=== PATIENT | female | born 1980 | race Hispanic/Latino ===

== ENCOUNTER 2018-08-15 16:17 | Inpatient (IN) | payer MEDICAID ==
--- NOTE | 2018-08-15 16:27 | C.PDOC ---
History Of Present Illness 38 yr old female w/ hx of bipolar, htn, depression, etoh, heroin IVDU p/w SI and difficulty sleeping. Pt notes that [facility] and was worried that they were poisoning her. She notes that she has not been taking her bipolar medication over the past 5 days and that is when the thoughts of her rehab site poisoning her began. She notes difficultly sleeping. She denies any abdominal pain, chest pain, back pain, shortness of breath, fever, chills or night sweats. No headache. No fall or trauma. She denies any recent usage of heroin. Time Seen by Provider: 08/15/18 16:27 Chief Complaint (Nursing): Psychiatric Evaluation Past Medical History Family History: States: Unknown Family Hx Review Of Systems Constitutional: Negative for: Fever, Chills, Sweats, Weakness, Malaise Eyes: Negative for: Pain, Vision Change, Conjunctivae Inflammation, Eyelid Inflammation ENT: Negative for: Ear Pain, Ear Discharge, Nose Pain, Nose Discharge, Nose Congestion, Mouth Pain, Mouth Swelling, Throat Pain Cardiovascular: Negative for: Chest Pain, Palpitations, Orthopnea, Edema Respiratory: Negative for: Cough, Shortness of Breath, Hemoptysis, SOB with Excertion, Pleuritic Pain, Sputum Gastrointestinal: Negative for: Nausea, Vomiting, Abdominal Pain, Diarrhea, Constipation, Melena, Hematochezia Genitourinary: Negative for: Dysuria, Frequency, Incontinence, Hematuria Musculoskeletal: Negative for: Neck Pain, Shoulder Pain Skin: Negative for: Rash, Lesions Neurological: Negative for: Weakness, Numbness, Incoordination, Change in Speech, Confusion, Seizures, Altered Mental Status, Headache Psych: Positive for: Suicidal ideation Physical Exam - Physical Exam Appears: Well, Non-toxic, No Acute Distress Skin: Normal Color, Warm Head: Atraumatic, Normacephalic Eye(s): bilateral: Normal Inspection, PERRL, EOMI Nose: Normal, No Flaring, No Discharge Tongue: Normal Appearing, No Swelling, No Lesions Lips: Normal Appearing, No Swelling, No Contusion Teeth: Normal Dentition, No Caries Gingiva: Normal Appearing Throat: Normal, No Erythema, No Exudate Neck: Normal, Normal ROM, Trachea Midline, Supple, Other (no meningeal signs) Lymphatic: Normal Exam Chest: Symmetrical, No Deformity Cardiovascular: Rhythm Regular, No Edema, No Friction Rub, No Murmur, No JVD Respiratory: Normal Breath Sounds, No Decreased Breath Sounds, No Accessory Muscle Use, No Rales, No Rhonchi, No Stridor, No Wheezing, No Plerual Rub Gastrointestinal/Abdominal: Normal Exam, Soft, No Tenderness, No Organomegaly, No Mass, No Distention, No Guarding Back: Normal Inspection, No CVA Tenderness, No Vertebral Tenderness Extremity: Normal ROM, No Tenderness, No Pedal Edema, No Calf Tenderness, No Swelling, Other (L AC fossa well healing, non crepitus non erythematous injection site noted ) Extremity: Bilateral: Atraumatic Pulses: Left Radial: Normal, Right Radial: Normal Neurological/Psych: Oriented x3, Normal Speech, Normal Cognition, Normal Cranial Nerves, No Cerebellar Signs, Normal Motor Gait: Steady Extremity: Right: No Drift, Left: No Drift ED Course And Treatment - Laboratory Results Result Diagrams: 08/15/18 17:15 08/15/18 17:15 Medical Decision Making Medical Decision Makin yr old f w/ hx of bipolar, etoh, heroin abuse p/w SI. No signs of abd tenderness on exam. No signs of poisoning on exam. Likely psych related issue given pt being d/c from her meds followed by difficulty sleeping and thoughts of SI and paranoid thoughts. NO other complaints. 1756 labs unremarkable pt remains w/ out physical complaints medically clear 1844 Appreciate consult w/ Crisis: pt to be admitted to Dr. Montoya service for MDD. Pt in NAD, agreeable to plan. Disposition - Disposition Disposition Time: 17:56 Condition: STABLE Forms: [employer] ([place]) - Clinical Impression Clinical Impression: MDD (major depressive disorder)
[2018-08-15 16:29] VITALS: BMI 23.3
[2018-08-15 17:26] LABS: BASO # 0.1 K/uL (0.0-0.2); BASO % 0.9 % (0.0-2.0); EOS # 0.1 K/uL (0.0-0.7); EOS % 0.7 % (0.0-4.0); HEMOGLOBIN 15.9 g/dL (11.0-16.0); LYMPH % 36.6 % (20.0-40.0); MEAN CELL VOLUME 94.7 fL (81.0-99.0); MEAN CORPUSCULAR HEMOGLOBIN 31.2 pg (27.0-31.0); MEAN CORPUSCULAR HGB CONC 32.9 g/dL (33.0-37.0); MEAN PLATELET VOLUME 7.8 fL (7.2-11.7); MONO # 0.5 K/uL (0.0-0.8); NEUT # 4.6 K/uL (1.8-7.0); NEUT % 55.8 % (50.0-75.0); NRBC % 0.1 % (0.0-2.0); RBC 5.11 Mil/uL (3.80-5.20); RED CELL DISTRIBUTION WIDTH 14.3 % (11.5-14.5); WHITE BLOOD COUNT 8.3 K/uL (4.8-10.8)
[2018-08-15 17:38] LABS: ACETAMINOPHEN < 10.0 ug/mL (10.0-30.0); SALICYLATE < 1.0 mg/dL 1; SQUAMOUS EPITHIAL 1 /hpf (0-5); URINE AMORPHOUS SEDIMENT RARE /ul (<OCC); URINE BILIRUBIN NEGATIVE (NEGATIVE); URINE BLOOD 1+ (NEGATIVE); URINE CLARITY Hazy (Clear); URINE COLOR Yellow (YELLOW); URINE GLUCOSE (UA) NORMAL (Normal); URINE LEUKOCYTE ESTERASE NEG Leu/uL (Negative); URINE PROTEIN NEGATIVE (NEGATIVE); URINE UROBILINOGEN NORMAL mg/dL (0.2-1.0)
[2018-08-15 17:44] LABS: ALB/GLOB RATIO 1.7 (1.0-2.1); ALBUMIN 4.5 g/dL (3.5-5.0); ALT/SGPT 27 U/L (9-52); AST/SGOT 24 U/L (14-36); BLOOD UREA NITROGEN 9 mg/dL (7-17); CALCIUM 9.5 mg/dl (8.6-10.4); GFR NON-AFRICAN AMERICAN > 60
[2018-08-15 17:50] LABS: BARBITURATES, UR NEGATIVE (NEGATIVE); OPIATES, UR NEGATIVE (NEGATIVE); PHENCYCLIDINE, UR NEGATIVE (NEGATIVE)
[2018-08-15 17:51] LABS: BENZODIAZEPINES, UR POSITIVE (NEGATIVE)
[2018-08-15] MEDS ORDERED: Potassium Chloride 20 mEq/15 ml LIQ UD PO STA (19:10)
[2018-08-15] MEDS ORDERED: Potassium Chloride 20 mEq/15 ml LIQ UD ONE (19:14)
--- NOTE | 2018-08-16 09:18 | PCM.BM ---
<Rich Green - Last Filed: 08/16/18 09:15> Treatment Plan Problems - Problems identified on initial assessmt Altered sleep patterns Date Initiated: 08/15/18 Time Initiated: 21:35 Assessment reference: NA Medication nonadherence Date Initiated: 08/15/18 Time Initiated: 21:35 Assessment reference: NA Treatment assets and liabiliti Patient Assests: self-reliant, ADL independent, negotiates basic needs, cognitively intact Patient Liabilities: live alone ([facility]), financial problems (Unemployed), relationship conflicts (Lost custody of children), substance abuse (Heroin and alcohol), medical problems (Hypertension and Hep C), legal issue (Dyfs has custody of children) - Milieu Protocol Maintain good personal hygiene: daily Encourage regular showers, daily Remind patient to perform daily oral care, every shift Assist patient to perform ADL's Conduct patient checks and document Observation sheet: Q15 minutes Maintain personal safety: every shift Educate patient to report safety concerns to staff, every shift Monitor environment for contraband/sharps Medication safety: Monitor for expected outcome, potential side effects: every shift, Assess barriers to learning: every shift, Assess readiness for medication education: every shift <Lindsay Petersen - Last Filed: 08/17/18 13:52> Family Contact Family involvement: Patient does not wish Family/SO involvement Family contact: Patient declines to allow family contact at present - Goals for Treatment Patient goals for treatment: "I want to go to an outpatient program." Discharge/Continuing Care - Education Needs Education Needs: Patient Medication, Patient Diagnosis/Disease Process, Patient Coping Skills, Patient Placement options, Patient Community resources - Discharge Discharge Criteria: Free of Suicidal thoughts, Normal sleep pattern, Ability to care for self, Reduction of target symptoms Discharge to:: Home, With Family <Kajal Solitario - Last Filed: 08/22/18 13:08> - Diagnosis (1) Bipolar depression Status: Acute Interventions: 08/22/18 13:08 * Assess/adjust medications daily and /or as needed * See patient on an individual basis 7x/week to assess level of manic behaviors and stability * Discuss risks, benefits, side effects and alternatives of medications *
--- NOTE | 2018-08-16 09:48 | PCM.PSYCH ---
Initial Psychiatric Evaluation - Initial Psychiatric Evaluation Type of Admission: Voluntary Legal Status: Capacity Chief Complaint (in patient's own words): I was feeling increasingly depressed and suicidal.' History of Present Illness and Precipitating Events: Patient is a 38 year old female, single, currently unemployed, escorted to the ED by [facility] for depressed mood, suicidal ideations and delusional thinking. Patient denies any past history of any inpatient psychiatric hospitalizations. She denies any history of follow-up with any psychiatrist. Patient reports that she has history of heroin abuse and drinking. She reports of abusing 10-15 bags of heroin and 2-3 pints of vodka daily. She reports that her last abuse was last month, July 2018. Then she went to detox and then went to [facility] for rehab. She reports that since past week she has become increasingly depressed. [place]. Patient reported she was on Ambilify and Wellbutrin but she stopped taking the medication 5 days ago because "it was making me feel wierd." Patient reported that she is "feeling insane" and that she has not slept for 5 nights because she has nightmares of her dying, getting seizures and evil kittens. Patient reported that she was feeling suicidal within [facility] and she had a plan to hang herself but she went to talk to the counsler instead and they sent her here. She reports depressed mood, feelings of hopelessness, helplessness and worthlessness. She also reports at times racing thoughts, flight of ideas, irritability and agitation. She reports paranoia but denies any auditory or visual hallucinations. Family history: Patient's brother overdose on heroin to commit suicide, on December 2017. Past medical history: HTN Current Medications: Active Medications Generic Name Dose Route Start Last Admin Trade Name Freq PRN Reason Stop Dose Admin Aripiprazole 10 mg 08/15/18 22:00 08/15/18 21:37 Abilify PO 10 mg HS JODY Administration Bupropion HCl 150 mg 08/16/18 10:00 08/16/18 09:40 Wellbutrin Xl PO 150 mg DAILY JODY Administration Hydroxyzine HCl 25 mg 08/15/18 20:48 08/15/18 23:36 Atarax PO 25 mg Q6 PRN Administration Anxiety Ibuprofen 600 mg 08/16/18 07:57 08/16/18 07:58 Motrin Tab PO 600 mg Q6 PRN Administration Pain, moderate (4-7) Pneumococcal Polyvalent Vaccine 0.5 ml 08/17/18 10:00 Pneumovax 23 Vaccine IM 08/17/18 10:01 .ONCE ONE Trazodone HCl 50 mg 08/15/18 22:00 08/15/18 21:37 Desyrel PO 50 mg HS JODY Administration Past Psychiatric History - Past Psychiatric History Previous Treatment History: None Pertinent Medical Hx (Current Medical&Sleep Prob, Allergies): Allergies Allergy/AdvReac Type Severity Reaction Status Date / Time No Known Allergies Allergy Verified 08/15/18 16:28 No Known Home Med 08/15/18 Review of Systems - Review of Systems All systems: reviewed and no additional remarkable complaints except - Psychiatric Psychiatric: Anxiety, Irritability, Mood Swings, Paranoia, Suicidal Ideation Mental Status Examination - Personal Presentation Personal Presentation: Looks stated age - Affect Affect: Broad - Motor Activity Motor Activity: Calm - Reliability in Providing Information Reliability in Providing Information: Fair - Speech Speech: Organized - Mood Mood: Depressed, Anxious - Formal Thought Process Formal Thought Process: Delusions - Obsessions/Compulsions Obsessions: No Compulsions: No - Cognitive Functions Orientation: Person, Place, Situation, Time Sensorium: Alert Attention/Concentration: Attentive Abstract Thinking: [place] Estimate of Intelligence: Below average Judgement: Imparied, as evidence by: Poor judgement, Imparied, as evidence by: Lack of insight into illness - Risk Risk: Suicidal, Diminished functioning - Limitations Limitations: Living alone DSM 5 DX - DSM 5 DSM 5 Diagnosis: Bipolar disorder mixed severe with psychotic features Alcohol use disorder severe in remission Opioid use disorder severe in early remission - Recommended/Plan of Treatment Treatment Recommendations and Plan of Treatment: Bipolar disorder mixed severe with psychotic features Alcohol use disorder severe in remission Opioid use disorder severe in early remission -CBT -Psychoeducation -Supportive therapy and group therapy -Trazodone for insomnia -Hydroxyzine for anxiety -Ativan for severe anxiety -Abilify for mood -DC Wellbutrin for depression -Neurontin for augmentation - Smoking Cessation Smoking Cessation Initiated: No
[2018-08-16] MEDS ORDERED: buPROPion 150 mg/24 Hours XL Tab PO SCH (10:00)
--- NOTE | 2018-08-17 09:27 | PCM.PYCHPN ---
Psychiatric Progress Note - Psychiatric Progress Note Patient seen today, length of contact: 15 min Patient Chief Complaint: I was feeling increasingly depressed and suicidal.' Problems Identified/Issues Discussed: Patient was seen and evaluated, chart reviewed and discussed the staff. Patient still reports depressed mood and reports at times feelings of hopelessness and helplessness. She remained isolated withdrawn and confined to room. As per staff she remained calm and cooperative and redirectable. She reports racing thoughts, flight of ideas and irritability. She denies any auditory or visual hallucinations. She is taking medication but denies any side effects. Supportive therapy was given Medication Change: Yes Medical Record Reviewed: Yes Mental Status Examination - Cognitive Function Orientation: Person, Place, Situation, Time Memory: Intact Attention: WNL Concentration: Poor Association: WNL Fund of Knowledge: Poor - Mood Mood: Depressed, Anxious - Affect Affect: Broad - Speech Speech: Soft - Formal Thought Process Formal Thought Process: Delusions - Suicidal Ideation Suicidal Ideation: No - Homicidal Ideation Homicidal Ideation: No Goal/Treatment Plan - Goal/Treatment Plan Need for Continued Stay: Remain at risks for inpatient hospitalization Progress Toward Problem(s) and Goals/Treatment Plan: Bipolar disorder mixed severe with psychotic features Alcohol use disorder severe in remission Opioid use disorder severe in early remission -CBT -Psychoeducation -Supportive therapy and group therapy -Trazodone for insomnia -Hydroxyzine for anxiety -Ativan for severe anxiety -Abilify for mood -DC Wellbutrin for depression -Neurontin for augmentation
[2018-08-17] MEDS ORDERED: Pneumococcal 23-Valent Vaccine IM ONE (10:00)
[2018-08-18] MEDS ORDERED: Aluminum Hydroxide/Magnesium Hydroxide Susp (30 mL) PO PRN (14:04)
[2018-08-19] MEDS: Pantoprazole 40 mg EC Tab PO SCH (09:42)
--- NOTE | 2018-08-19 13:04 | CP.PCM.CON ---
<Radha Gaona - Last Filed: 08/19/18 14:30> History of Present Illness - History of Present Illness History of Present Illness: Medicine Consult Note for Hospitalist Service CC: shortness of breath This is a 38 year old female with PMHx of Major Depressive Disorder, Hx of alcohol (07/24), hx of IV heroine use (last use 07/2018), and Hepatitis C (untreated), who were were asked to see for shortness of breath x 3 days. Patient reports she started to experience subjective fevers, chills, generalized weakness, fatigue, and nonproductive cough since day of admission to the psych unit. She states she has no appetite, not able to tolerate much liquids. Denied any nausea or vomiting, but had 1 episode of diarrhea yesterday. PMHx: As noted above PSHx: Denied Meds: Denied All: Denied SHx: Admitted to prior tobacco use 8 cigarettes / day for ~ 10 years, admitted to alcohol use, and IV heroine use FHx: Unremarkable Past Patient History - Past Social History Smoking Status: Heavy Smoker > 10 Cigarettes Daily - CARDIAC Hx Cardiac Disorders: No (Patient denied.) Hx Hypertension: Yes - PULMONARY Hx Tuberculosis: No (Patient denied.) - NEUROLOGICAL HX Cerebrovascular Accident: No (Patient denied.) Hx Seizures: No (Patient denied.) - HEMATOLOGICAL/ONCOLOGICAL Hx Cancer: No (Patient denied.) Hx Human Immunodeficiency Virus (HIV): No (Patient denied.) - GENITOURINARY/GYNECOLOGICAL Hx Sexually Transmitted Disorders: No (Patient denied.) - PSYCHIATRIC Hx Substance Use: Yes - SURGICAL HISTORY Hx Cardiac Catheterization: Yes (x2) - ANESTHESIA Hx Anesthesia: Yes Meds Allergies/Adverse Reactions: Allergies Allergy/AdvReac Type Severity Reaction Status Date / Time No Known Allergies Allergy Verified 08/15/18 16:28 - Medications Medications: Current Medications Acetaminophen (Tylenol 325mg Tab) 650 mg PO Q6 PRN PRN Reason: Pain, moderate (4-7) Last Admin: 08/17/18 07:26 Dose: 650 mg Al Hydrox/Mg Hydrox/Simethicone (Maalox 30 Ml) 30 ml PO Q6 PRN PRN Reason: Indigestion / Heartburn Last Admin: 08/18/18 21:09 Dose: 30 ml Aripiprazole (Abilify) 10 mg PO HS JODY Last Admin: 08/18/18 21:02 Dose: 10 mg Gabapentin (Neurontin) 300 mg PO TID [facility] Last Admin: 08/19/18 09:10 Dose: 300 mg Hydroxyzine HCl (Atarax) 25 mg PO Q6 PRN PRN Reason: Anxiety Last Admin: 08/15/18 23:36 Dose: 25 mg Ibuprofen (Motrin Tab) 600 mg PO Q6 PRN PRN Reason: Pain, moderate (4-7) Last Admin: 08/17/18 04:34 Dose: 600 mg Mirtazapine (Remeron) 15 mg PO [facility] Last Admin: 08/18/18 21:02 Dose: 15 mg Nicotine (Nicoderm Cq) 1 patch TD DAILY [facility] Last Admin: 08/19/18 09:10 Dose: 1 patch Ondansetron HCl (Zofran Tab) 4 mg PO Q6 PRN PRN Reason: Nausea/Vomiting Last Admin: 08/17/18 11:21 Dose: 4 mg Pantoprazole Sodium (Protonix Ec Tab) 40 mg PO DAILY [facility] Last Admin: 08/19/18 09:42 Dose: 40 mg Trazodone HCl (Desyrel) 100 mg PO [facility] Last Admin: 08/18/18 21:02 Dose: 100 mg Physical Exam - Constitutional Appears: No Acute Distress - Head Exam Head Exam: ATRAUMATIC, NORMAL INSPECTION, NORMOCEPHALIC - Eye Exam Eye Exam: EOMI, Normal appearance, PERRL Pupil Exam: NORMAL ACCOMODATION - ENT Exam ENT Exam: Mucous Membranes Dry - Neck Exam Neck exam: Positive for: Normal Inspection - Respiratory Exam Respiratory Exam: Clear to Auscultation Bilateral, NORMAL BREATHING PATTERN. absent: Decreased Breath Sounds, Rales, Rhonchi, Wheezes - Cardiovascular Exam Cardiovascular Exam: Tachycardia, +S1, +S2. absent: Diastolic murmur, Systolic Murmur - GI/Abdominal Exam GI & Abdominal Exam: Normal Bowel Sounds, Soft. absent: Distended, Tenderness - Rectal Exam Rectal Exam: Deferred - Extremities Exam Extremities exam: Positive for: normal inspection, pedal pulses present. Negative for: pedal edema, tenderness - Back Exam Back exam: NORMAL INSPECTION - Neurological Exam Neurological exam: Alert, CN II-XII Intact, Oriented x3 - Psychiatric Exam Psychiatric exam: Normal Affect, Normal Mood - Skin Skin Exam: Dry, Intact, Normal Color, Warm Results - Vital Signs Recent Vital Signs: Last Vital Signs Temp 99.6 F 08/19/18 06:00 Pulse 93 H 08/19/18 06:00 Resp 18 08/19/18 06:00 BP 143/85 08/19/18 06:00 Pulse Ox 100 08/15/18 18:40 - Labs Result Diagrams: 08/15/18 17:15 08/15/18 17:15 Assessment & Plan - Assessment and Plan (Free Text) Plan: URI/ Possible PNA Imaging: - CXR: ordered pending Management: - IVF, Avelox started, Florastor - Mucinex, Tesselon, Vitamin C, Tamiflu - Pneumonia work up, procal, Influenza - UA, Blood and Urine cultures ordered Tachycardia - EKG ordered - D- Dimer ordered Hx of Alcohol Dependence Hx of Tobacco Use Dependence - Nicotine Patch in place Major Depressive Disorder - Managed by Psych Prophylactic Measures - GI PPX: Protonix - DVT PPX: SCDs Disposition: Patient transferred to tele for IV hydration, IV Abx. Once medically stable will transfer back to psych. DW Dr. Paige, Radha Gaona DO, PGY2 <Ursula Paige V - Last Filed: 08/19/18 23:35> Meds - Medications Medications: Current Medications Acetaminophen (Tylenol 325mg Tab) 650 mg PO Q6 PRN PRN Reason: Pain, moderate (4-7) Last Admin: 08/17/18 07:26 Dose: 650 mg Al Hydrox/Mg Hydrox/Simethicone (Maalox 30 Ml) 30 ml PO Q6 PRN PRN Reason: Indigestion / Heartburn Last Admin: 08/18/18 21:09 Dose: 30 ml Albuterol/Ipratropium (Duoneb 3 Mg/0.5 Mg (3 Ml) Ud) 3 ml INH RQ6 PRN PRN Reason: Shortness of Breath Aripiprazole (Abilify) 10 mg PO HS JODY Last Admin: 08/19/18 21:48 Dose: 10 mg Ascorbic Acid (Vitamin C 500 Mg Tab) 500 mg PO DAILY JODY Benzonatate (Tessalon Perles) 100 mg PO BID [facility] Last Admin: 08/19/18 17:32 Dose: 100 mg Gabapentin (Neurontin) 300 mg PO TID [facility] Last Admin: 08/19/18 17:32 Dose: 300 mg Guaifenesin (Mucinex La) 600 mg PO BID [facility] Last Admin: 08/19/18 17:31 Dose: 600 mg Hydroxyzine HCl (Atarax) 25 mg PO Q6 PRN PRN Reason: Anxiety Last Admin: 08/15/18 23:36 Dose: 25 mg Sodium Chloride (Sodium Chloride 0.9%) 1,000 mls @ 100 mls/hr IV .Q10H [facility] Last Admin: 08/19/18 17:05 Dose: 100 mls/hr Moxifloxacin HCl (Avelox Iv 400mg/250ml Ns) 400 mg in 250 mls @ 167 mls/hr IVPB Q24H [facility]; Protocol Last Admin: 08/19/18 20:10 Dose: 167 mls/hr Ibuprofen (Motrin Tab) 600 mg PO Q6 PRN PRN Reason: Pain, moderate (4-7) Last Admin: 08/17/18 04:34 Dose: 600 mg Mirtazapine (Remeron) 15 mg PO HS [facility] Last Admin: 08/19/18 21:47 Dose: 15 mg Nicotine (Nicoderm Cq) 1 patch TD DAILY [facility] Last Admin: 08/19/18 09:10 Dose: 1 patch Ondansetron HCl (Zofran Tab) 4 mg PO Q6 PRN PRN Reason: Nausea/Vomiting Last Admin: 08/17/18 11:21 Dose: 4 mg Oseltamivir Phosphate (Tamiflu Cap) 75 mg PO BID [facility]; Protocol Stop: 08/24/18 18:01 Last Admin: 08/19/18 17:32 Dose: 75 mg Pantoprazole Sodium (Protonix Ec Tab) 40 mg PO DAILY [facility] Last Admin: 08/19/18 09:42 Dose: 40 mg Saccharomyces Boulardii (Florastor) 250 mg PO BID [facility] Last Admin: 08/19/18 17:31 Dose: 250 mg Trazodone HCl (Desyrel) 100 mg PO HS [facility] Last Admin: 08/19/18 21:47 Dose: 100 mg Results - Vital Signs Recent Vital Signs: Last Vital Signs Temp 99.6 F 08/19/18 06:00 Pulse 109 H 08/19/18 15:55 Resp 18 08/19/18 06:00 BP 129/92 H 08/19/18 15:55 Pulse Ox 100 08/15/18 18:40 - Labs Result Diagrams: 08/19/18 17:08 08/19/18 17:08 Labs: Laboratory Results - last 24 hr 08/19/18 08/19/18 08/19/18 17:08 17:08 17:08 WBC 11.6 H RBC 5.87 H Hgb 18.3 H D Hct 55.1 H MCV 93.9 MCH 31.2 H MCHC 33.2 RDW 14.8 H Plt Count 317 MPV 7.7 Neut % (Auto) 66.8 Lymph % (Auto) 26.4 Schuyler % (Auto) 5.6 Eos % (Auto) 0.3 Baso % (Auto) 0.9 Neut # (Auto) 7.8 H Lymph # (Auto) 3.1 Schuyler # (Auto) 0.6 Eos # (Auto) 0.0 Baso # (Auto) 0.1 D-Dimer, Quantitative Sodium 136 Potassium 4.0 Chloride 97 L Carbon Dioxide 27 Anion Gap 16 BUN 11 Creatinine 0.6 L Est GFR ( Amer) > 60 Est GFR (Non-Af Amer) > 60 Random Glucose 118 H D Calcium 10.6 H Phosphorus 3.9 Magnesium 2.2 Total Bilirubin 0.7 AST 26 ALT 22 Alkaline Phosphatase 49 Total Protein 8.2 Albumin 5.2 H Globulin 3.0 Albumin/Globulin Ratio 1.7 Procalcitonin < 0.05 L Influenza Typ A,B (EIA) 08/19/18 08/19/18 17:08 19:23 WBC RBC Hgb Hct MCV MCH MCHC RDW Plt Count MPV Neut % (Auto) Lymph % (Auto) [place]uyler % (Auto) Eos % (Auto) Baso % (Auto) Neut # (Auto) Lymph # (Auto) [place]uyler # (Auto) Eos # (Auto) Baso # (Auto) D-Dimer, Quantitative < 200 Sodium Potassium Chloride Carbon Dioxide Anion Gap BUN Creatinine Est GFR ( Amer) Est GFR (Non-Af Amer) Random Glucose Calcium Phosphorus Magnesium Total Bilirubin AST ALT Alkaline Phosphatase Total Protein Albumin Globulin Albumin/Globulin Ratio Procalcitonin Influenza Typ A,B (EIA) Negative for flu a/b Attending/Attestation - Attestation I have personally seen and examined this patient.: Yes I have fully participated in the care of the patient.: Yes I have reviewed all pertinent clinical information: Yes Notes (Text): Medicine on consult Patient seen, examined and case discussed with medical liaison. Agree with assessment and plan as documented by the resident. [facility] for benefit of iv hydration, start empiric iv abx to cover for upper respiratory infection, and will collect blood work today including cultures and serology and supportive measures for cough.
[2018-08-19] MEDS ORDERED: Albuterol-Ipratrop 3 mg / 0.5 (3 ml) UD INH PRN (14:01)
[2018-08-19] MEDS ORDERED: Moxifloxacin IV 400mg/250ml NS 400 MG/250 ML BAG IVPB ONE ×2 (15:30→16:00)
--- NOTE | 2018-08-19 16:22 | RAD ---
Chest x-ray single frontal view History: Shortness of breath. COMPARISON: None available. Findings: Mild venous congestion. Right hilar prominence. Heart size within normal limits. Impression: Mild venous congestion. Right hilar prominence. Heart size within normal limits.
[2018-08-19] MEDS: Sodium Chloride 0.9% 1,000 ML IV SCH (17:05)
[2018-08-19 17:15] LABS: BASO # 0.1 K/uL (0.0-0.2); BASO % 0.9 % (0.0-2.0); EOS % 0.3 % (0.0-4.0); LYMPH # 3.1 K/uL (1.0-4.3); LYMPH % 26.4 % (20.0-40.0); MEAN CELL VOLUME 93.9 fL (81.0-99.0); MEAN CORPUSCULAR HEMOGLOBIN 31.2 pg (27.0-31.0); MEAN CORPUSCULAR HGB CONC 33.2 g/dL (33.0-37.0); MEAN PLATELET VOLUME 7.7 fL (7.2-11.7); MONO # 0.6 K/uL (0.0-0.8); MONO % 5.6 % (0.0-10.0); NEUT # 7.8 K/uL (1.8-7.0); NEUT % 66.8 % (50.0-75.0); RBC 5.87 Mil/uL (3.80-5.20); RED CELL DISTRIBUTION WIDTH 14.8 % (11.5-14.5); WHITE BLOOD COUNT 11.6 K/uL (4.8-10.8)
[2018-08-19 17:19] LABS: HEMOGLOBIN 18.3 g/dL (11.0-16.0)
[2018-08-19 17:26] LABS: ALB/GLOB RATIO 1.7 (1.0-2.1); ALBUMIN 5.2 g/dL (3.5-5.0); ALT/SGPT 22 U/L (9-52); AST/SGOT 26 U/L (14-36); BLOOD UREA NITROGEN 11 mg/dL (7-17); CALCIUM 10.6 mg/dl (8.6-10.4); GFR NON-AFRICAN AMERICAN > 60
[2018-08-19] MEDS: guaiFENesin 600 mg ER Tab PO SCH (17:31)
[2018-08-19] MEDS: Saccharomyces Boulardi 250 mg Cap PO SCH (17:31)
[2018-08-19] MEDS ORDERED: Moxifloxacin IV 400mg/250ml NS 400 MG/250 ML BAG IVPB SCH (19:30)
[2018-08-20 07:22] LABS: BASO % 0.5 % (0.0-2.0); EOS # 0.1 K/uL (0.0-0.7); EOS % 0.7 % (0.0-4.0); HEMOGLOBIN 16.5 g/dL (11.0-16.0); LYMPH # 2.4 K/uL (1.0-4.3); LYMPH % 27.8 % (20.0-40.0); MEAN CELL VOLUME 93.9 fL (81.0-99.0); MEAN CORPUSCULAR HEMOGLOBIN 31.7 pg (27.0-31.0); MEAN CORPUSCULAR HGB CONC 33.8 g/dL (33.0-37.0); MEAN PLATELET VOLUME 7.8 fL (7.2-11.7); MONO # 0.6 K/uL (0.0-0.8); MONO % 6.6 % (0.0-10.0); NEUT # 5.4 K/uL (1.8-7.0); NEUT % 64.4 % (50.0-75.0); NRBC % 0.1 % (0.0-2.0); RBC 5.19 Mil/uL (3.80-5.20); RED CELL DISTRIBUTION WIDTH 14.5 % (11.5-14.5); WHITE BLOOD COUNT 8.5 K/uL (4.8-10.8)
--- NOTE | 2018-08-20 07:56 | CP.PCM.PN ---
Subjective - Date & Time of Evaluation Date of Evaluation: 08/20/18 Time of Evaluation: 12:00 - Subjective Subjective: Medicine progress note for Dr. Paige Pt seen and examined at bedside. No acute events overnight. Pt still has nonproductive cough and nasal congestion, but is improving as per pt. Denies fever, chills, chest pain, sob, abdominal pain, n/v. Continues to have loose bowel movements, nonbloody, nonmucous. Objective - Vital Signs/Intake and Output Vital Signs (last 24 hours): Temp Pulse Resp BP Pulse Ox 97.9 F 81 18 123/83 99 08/19/18 23:21 08/19/18 23:21 08/19/18 23:21 08/19/18 23:21 08/19/18 23:21 - Medications Medications: Current Medications Acetaminophen (Tylenol 325mg Tab) 650 mg PO Q6 PRN PRN Reason: Pain, moderate (4-7) Last Admin: 08/17/18 07:26 Dose: 650 mg Al Hydrox/Mg Hydrox/Simethicone (Maalox 30 Ml) 30 ml PO Q6 PRN PRN Reason: Indigestion / Heartburn Last Admin: 08/18/18 21:09 Dose: 30 ml Albuterol/Ipratropium (Duoneb 3 Mg/0.5 Mg (3 Ml) Ud) 3 ml INH RQ6 PRN PRN Reason: Shortness of Breath Aripiprazole (Abilify) 10 mg PO HS [facility] Last Admin: 08/19/18 21:48 Dose: 10 mg Ascorbic Acid (Vitamin C 500 Mg Tab) 500 mg PO DAILY [facility] Benzonatate (Tessalon Perles) 100 mg PO BID [facility] Last Admin: 08/19/18 17:32 Dose: 100 mg Gabapentin (Neurontin) 300 mg PO TID [facility] Last Admin: 08/19/18 17:32 Dose: 300 mg Guaifenesin (Mucinex La) 600 mg PO BID [facility] Last Admin: 08/19/18 17:31 Dose: 600 mg Hydroxyzine HCl (Atarax) 25 mg PO Q6 PRN PRN Reason: Anxiety Last Admin: 08/15/18 23:36 Dose: 25 mg Sodium Chloride (Sodium Chloride 0.9%) 1,000 mls @ 100 mls/hr IV .Q10H [facility] Last Admin: 08/19/18 17:05 Dose: 100 mls/hr Moxifloxacin HCl (Avelox Iv 400mg/250ml Ns) 400 mg in 250 mls @ 167 mls/hr IVPB Q24H [facility]; Protocol Last Admin: 08/19/18 20:10 Dose: 167 mls/hr Ibuprofen (Motrin Tab) 600 mg PO Q6 PRN PRN Reason: Pain, moderate (4-7) Last Admin: 08/17/18 04:34 Dose: 600 mg Mirtazapine (Remeron) 15 mg PO HS [facility] Last Admin: 08/19/18 21:47 Dose: 15 mg Nicotine (Nicoderm Cq) 1 patch TD DAILY [facility] Last Admin: 08/19/18 09:10 Dose: 1 patch Ondansetron HCl (Zofran Tab) 4 mg PO Q6 PRN PRN Reason: Nausea/Vomiting Last Admin: 08/17/18 11:21 Dose: 4 mg Oseltamivir Phosphate (Tamiflu Cap) 75 mg PO BID [facility]; Protocol Stop: 08/24/18 18:01 Last Admin: 08/19/18 17:32 Dose: 75 mg Pantoprazole Sodium (Protonix Ec Tab) 40 mg PO DAILY [facility] Last Admin: 08/19/18 09:42 Dose: 40 mg Saccharomyces Boulardii (Florastor) 250 mg PO BID [facility] Last Admin: 08/19/18 17:31 Dose: 250 mg Trazodone HCl (Desyrel) 100 mg PO [facility] Last Admin: 08/19/18 21:47 Dose: 100 mg - Labs Labs: 08/20/18 07:03 08/19/18 17:08 - Constitutional Appears: Non-toxic, No Acute Distress - Head Exam Head Exam: NORMAL INSPECTION - Eye Exam Eye Exam: EOMI, Normal appearance - ENT Exam ENT Exam: Mucous Membranes Moist - Respiratory Exam Respiratory Exam: Clear to Ausculation Bilateral. absent: Rales, Rhonchi, Wheezes - Cardiovascular Exam Cardiovascular Exam: REGULAR RHYTHM, +S1, +S2. absent: Tachycardia - GI/Abdominal Exam GI & Abdominal Exam: Soft, Normal Bowel Sounds. absent: Distended, Firm, Guard ing, Tenderness - Extremities Exam Extremities Exam: Normal Capillary Refill, Normal Inspection. absent: Calf Tenderness, Pedal Edema, Tenderness - Back Exam Back Exam: NORMAL INSPECTION. absent: CVA tenderness (L), CVA tenderness (R) - Neurological Exam Neurological Exam: Alert, Awake, Normal Gait - Psychiatric Exam Psychiatric exam: Normal Affect, Normal Mood - Skin Skin Exam: Dry, Intact, Normal Color, Warm Assessment and Plan - Assessment and Plan (Free Text) Assessment: URI/ Possible PNA Imaging: - CXR: no infiltrate Management: - Avelox 400 mg once daily switched to oral medication at same dosage and frequency. Pt to complete a 5 day course, 4 more doses needed. - Florastor - Mucinex, Tesselon, Vitamin C, Tamiflu 75 mg PO BID x total 5 days. - Pneumonia work up, procal, Influenza - Blood culture x 2 shows no growth in 24 hours - Influenza negative Tachycardia, resolved - likely secondary to dehydration - D- Dimer is less than 200 Hx of Alcohol Dependence - Managed by Psych Hx of Tobacco Use Dependence - Nicotine Patch in place Major Depressive Disorder - Managed by Psych Prophylactic Measures - GI PPX: Protonix - DVT PPX: SCDs Disposition: Pt is no longer tachycardic, tolerating PO, symptoms improving, no leukocytosis. Medically stable for transfer to psychiatry unit for treatment of MDD. Pt should continue Moxifloxacin 400 mg PO once daily x5 total doses (4 more), complete 5 day course of Tamiflu 75 mg PO BID, take mucinex as needed for congestion, Tessalon perrles as needed for cough. Please reconsult as needed.
[2018-08-20 08:20] LABS: ALB/GLOB RATIO 1.6 (1.0-2.1); ALBUMIN 4.1 g/dL (3.5-5.0); ALT/SGPT 21 U/L (9-52); AST/SGOT 33 U/L (14-36); BLOOD UREA NITROGEN 10 mg/dL (7-17); CALCIUM 9.7 mg/dl (8.6-10.4); GFR NON-AFRICAN AMERICAN > 60
[2018-08-20] MEDS ORDERED: Moxifloxacin IV 400mg/250ml NS 400 MG/250 ML BAG IVPB SCH (10:00)
[2018-08-20] MEDS: Saccharomyces Boulardi 250 mg Cap PO SCH ×2 (10:36→18:24)
[2018-08-20] MEDS: guaiFENesin 600 mg ER Tab PO SCH ×2 (10:37→18:24)
[2018-08-20] MEDS: Pantoprazole 40 mg EC Tab PO SCH (10:37)
[2018-08-20 15:08] LABS: SQUAMOUS EPITHIAL 4 /hpf (0-5); URINE BACTERIA RARE (<OCC); URINE BILIRUBIN NEGATIVE (NEGATIVE); URINE BLOOD NEGATIVE (NEGATIVE); URINE CLARITY Hazy (Clear); URINE COLOR Yellow (YELLOW); URINE GLUCOSE (UA) NORMAL (Normal); URINE LEUKOCYTE ESTERASE NEG Leu/uL (Negative); URINE PROTEIN NEGATIVE (NEGATIVE); URINE UROBILINOGEN NORMAL mg/dL (0.2-1.0)
[2018-08-20 16:07] VITALS: O2SAT 95
[2018-08-20 18:39] VITALS: RESP 18
[2018-08-20 19:19] LABS: STREP PNEUMONIAE NEGATIVE (NEGATIVE)
[2018-08-21] MEDS: Sodium Chloride 0.9% 1,000 ML IV SCH ×2 (08:51→08:57)
[2018-08-21] MEDS: Pantoprazole 40 mg EC Tab PO SCH (09:28)
[2018-08-21] MEDS: Saccharomyces Boulardi 250 mg Cap PO SCH ×3 (09:28→17:17)
[2018-08-21] MEDS: guaiFENesin 600 mg ER Tab PO SCH ×2 (09:37→17:16)
--- NOTE | 2018-08-21 10:55 | PCM.PYCHPN ---
Psychiatric Progress Note - Psychiatric Progress Note Patient seen today, length of contact: 15 min Patient Chief Complaint: I was feeling increasingly depressed and suicidal.' Problems Identified/Issues Discussed: Patient was seen and evaluated, chart reviewed and discussed the staff. She reports racing thoughts, flight of ideas and irritability. She denies any auditory or visual hallucinations. Patient still reports depressed mood and reports at times feelings of hopelessness and helplessness. She remained isolated withdrawn and confined to room. As per staff she remained calm and cooperative and redirectable. She is taking medication but denies any side effects. Supportive therapy was given Medication Change: Yes Medical Record Reviewed: Yes Mental Status Examination - Cognitive Function Orientation: Person, Place, Situation, Time Memory: Intact Attention: WNL Concentration: Poor Association: WNL Fund of Knowledge: Poor - Mood Mood: Depressed, Anxious - Affect Affect: Broad - Speech Speech: Soft - Formal Thought Process Formal Thought Process: Delusions - Suicidal Ideation Suicidal Ideation: No - Homicidal Ideation Homicidal Ideation: No Goal/Treatment Plan - Goal/Treatment Plan Need for Continued Stay: Remain at risks for inpatient hospitalization Progress Toward Problem(s) and Goals/Treatment Plan: Bipolar disorder mixed severe with psychotic features Alcohol use disorder severe in remission Opioid use disorder severe in early remission -CBT -Psychoeducation -Supportive therapy and group therapy -Trazodone for insomnia -Hydroxyzine for anxiety -Ativan for severe anxiety -Abilify for mood -Neurontin for augmentation
--- NOTE | 2018-08-22 00:40 | PCM.PYCHPN ---
Psychiatric Progress Note - Psychiatric Progress Note Patient seen today, length of contact: 15 min Patient Chief Complaint: I am feeling short of breath.' Problems Identified/Issues Discussed: Patient was seen and evaluated, chart reviewed and discussed the staff. The patient reports that she is short of breath and she can not walk. She reports some improvement in the racing thoughts, flight of ideas and irritability. Patient reports some improvement in the depressed mood and reports at times feelings of hopelessness and helplessness. She remained isolated withdrawn and confined to room. As per staff she remained calm and cooperative and redirectable. She is taking medication but denies any side effects. Supportive therapy was given Medication Change: Yes Medical Record Reviewed: Yes Mental Status Examination - Cognitive Function Orientation: Person, Place, Situation, Time Memory: Intact Attention: WNL Concentration: Poor Association: WNL Fund of Knowledge: Poor - Mood Mood: Depressed, Anxious - Affect Affect: Broad - Speech Speech: Soft - Formal Thought Process Formal Thought Process: Delusions - Suicidal Ideation Suicidal Ideation: No - Homicidal Ideation Homicidal Ideation: No Goal/Treatment Plan - Goal/Treatment Plan Need for Continued Stay: Remain at risks for inpatient hospitalization Progress Toward Problem(s) and Goals/Treatment Plan: Bipolar disorder mixed severe with psychotic features Alcohol use disorder severe in remission Opioid use disorder severe in early remission -CBT -Psychoeducation -Supportive therapy and group therapy -Trazodone for insomnia -Hydroxyzine for anxiety -Ativan for severe anxiety -Abilify for mood -Neurontin for augmentation Medicine was consulted and patient was transferred to the medical floor.
--- NOTE | 2018-08-22 00:41 | PCM.PYCHPN ---
Psychiatric Progress Note - Psychiatric Progress Note Patient seen today, length of contact: 15 min Patient Chief Complaint: I am feeling little better.' Problems Identified/Issues Discussed: Patient was seen and evaluated, chart reviewed and discussed the staff. Patient was transferred back to psych. She reports some improvement in the racing thoughts, flight of ideas and irritability. Patient reports some improvement in the depressed mood and reports at times feelings of hopelessness and helplessness. She remained isolated withdrawn and confined to room. As per staff she remained calm and cooperative and redirectable. She is taking medication but denies any side effects. Supportive therapy was given Medication Change: Yes Medical Record Reviewed: Yes Mental Status Examination - Cognitive Function Orientation: Person, Place, Situation, Time Memory: Intact Attention: WNL Concentration: Poor Association: WNL Fund of Knowledge: Poor - Mood Mood: Depressed, Anxious - Affect Affect: Broad - Speech Speech: Soft - Formal Thought Process Formal Thought Process: No Impairment - Suicidal Ideation Suicidal Ideation: No - Homicidal Ideation Homicidal Ideation: No Goal/Treatment Plan - Goal/Treatment Plan Need for Continued Stay: Remain at risks for inpatient hospitalization Progress Toward Problem(s) and Goals/Treatment Plan: Bipolar disorder mixed severe with psychotic features Alcohol use disorder severe in remission Opioid use disorder severe in early remission -CBT -Psychoeducation -Supportive therapy and group therapy -Trazodone for insomnia -Hydroxyzine for anxiety -Ativan for severe anxiety -Abilify for mood -Neurontin for augmentation
[2018-08-22 06:20] VITALS: TEMP 98.6
[2018-08-22] MEDS: Pantoprazole 40 mg EC Tab PO SCH (09:43)
[2018-08-22] MEDS: guaiFENesin 600 mg ER Tab PO SCH (09:45)
[2018-08-22] MEDS: Saccharomyces Boulardi 250 mg Cap PO SCH (09:45)
--- NOTE | 2018-08-22 10:04 | CP.PCM.PN ---
Subjective - Date & Time of Evaluation Date of Evaluation: 08/22/18 (Testing ) Time of Evaluation: 00:00 - Subjective Subjective: Testing Objective - Vital Signs/Intake and Output Vital Signs (last 24 hours): Temp Pulse Resp BP Pulse Ox 98.6 F 92 H 18 113/75 95 08/22/18 06:19 08/22/18 06:19 08/22/18 06:19 08/22/18 06:19 08/20/18 15:00 - Medications Medications: Current Medications Acetaminophen (Tylenol 325mg Tab) 650 mg PO Q6 PRN PRN Reason: Pain, moderate (4-7) Last Admin: 08/17/18 07:26 Dose: 650 mg Al Hydrox/Mg Hydrox/Simethicone (Maalox 30 Ml) 30 ml PO Q6 PRN PRN Reason: Indigestion / Heartburn Last Admin: 08/18/18 21:09 Dose: 30 ml Albuterol/Ipratropium (Duoneb 3 Mg/0.5 Mg (3 Ml) Ud) 3 ml INH RQ6 PRN PRN Reason: Shortness of Breath Aripiprazole (Abilify) 10 mg PO [facility] Last Admin: 08/21/18 21:17 Dose: 10 mg Ascorbic Acid (Vitamin C 500 Mg Tab) 500 mg PO DAILY [facility] Last Admin: 08/22/18 09:44 Dose: 500 mg Benzonatate (Tessalon Perles) 100 mg PO BID [facility] Last Admin: 08/22/18 09:44 Dose: 100 mg Gabapentin (Neurontin) 300 mg PO TID [facility] Last Admin: 08/22/18 09:43 Dose: 300 mg Guaifenesin (Mucinex La) 600 mg PO BID [facility] Last Admin: 08/22/18 09:45 Dose: 600 mg Hydroxyzine HCl (Atarax) 25 mg PO Q6 PRN PRN Reason: Anxiety Last Admin: 08/15/18 23:36 Dose: 25 mg Ibuprofen (Motrin Tab) 600 mg PO Q6 PRN PRN Reason: Pain, moderate (4-7) Last Admin: 08/17/18 04:34 Dose: 600 mg Mirtazapine (Remeron) 15 mg PO [facility] Last Admin: 08/21/18 21:17 Dose: 15 mg Moxifloxacin HCl (Avelox) 400 mg PO DAILY [facility]; Protocol Stop: 08/23/18 10:01 Last Admin: 08/22/18 09:44 Dose: 400 mg Nicotine (Nicoderm Cq) 1 patch TD DAILY [facility] Last Admin: 08/22/18 09:43 Dose: Not Given Ondansetron HCl (Zofran Tab) 4 mg PO Q6 PRN PRN Reason: Nausea/Vomiting Last Admin: 08/17/18 11:21 Dose: 4 mg Oseltamivir Phosphate (Tamiflu Cap) 75 mg PO BID [facility]; Protocol Stop: 08/24/18 18:01 Last Admin: 08/22/18 09:45 Dose: 75 mg Pantoprazole Sodium (Protonix Ec Tab) 40 mg PO DAILY [facility] Last Admin: 08/22/18 09:43 Dose: 40 mg Saccharomyces Boulardii (Florastor) 250 mg PO BID [facility] Last Admin: 08/22/18 09:45 Dose: 250 mg Trazodone HCl (Desyrel) 100 mg PO HS [facility] Last Admin: 08/21/18 21:17 Dose: 100 mg - Labs Labs: 08/20/18 07:03 08/20/18 07:03
--- NOTE | 2018-08-22 10:38 | PCM.PYCHDC ---
Mental Status Examination - Mental Status Examination Orientation: Person, Place, Situation, Time Memory: Intact Mood: Neutral Affect: Constricted Speech: Soft Attention: WNL Concentration: WNL Association: WNL Fund of Knowledge: WNL Formal Thought Process: No Impairment Description of patient's judgement and insight: good, fair Psychotic Thoughts and Behaviors: denies any AVH Suicidal Ideation: No Current Homicidal Ideation?: No Discharge Summary - Discharge Note Reason for Hospitalization: Patient is a 38 year old female, single, currently unemployed, escorted to the ED by [facility] for depressed mood, suicidal ideations and delusional thinking. Patient denies any past history of any inpatient psychiatric hospitalizations. She denies any history of follow-up with any psychiatrist. Patient reports that she has history of heroin abuse and drinking. She reports of abusing 10-15 bags of heroin and 2-3 pints of vodka daily. She reports that her last abuse was last month, July 2018. Then she went to detox and then went to [facility] for rehab. She reports that since past week she has become increasingly depressed. House. Patient reported she was on Ambilify and Wellbutrin but she stopped taking the medication 5 days ago because "it was making me feel wierd." Patient reported that she is "feeling insane" and that she has not slept for 5 nights because she has nightmares of her dying, getting seizures and evil kittens. Patient reported that she was feeling suicidal within [facility] and she had a plan to hang herself but she went to talk to the counsler instead and they sent her here. She reports depressed mood, feelings of hopelessness, helplessness and worthl essness. She also reports at times racing thoughts, flight of ideas, irritability and agitation. She reports paranoia but denies any auditory or visual hallucinations. Family history: Patient's brother overdose on heroin to commit suicide, on December 2017. Past medical history: HTN Laboratory Data: Abnormal Lab Results 08/20/18 19:58 Ur L.pneumophila Ag Negative Consultations:: List each consultation separately and include: 1. Reason for request. 2. Findings. 3. Follow-up Summary of Hospital Course include:: 1. Description of specific treatment plan utilized for patients during their course of treatmen. 2. Summarize the time- course for resolution of acute symptoms and/or regressed behaviors. 3. Describe issues identified and worked on during hospitalization. 4. Describe medication utilized. 5. Describe medical problems identified and treated. 6. Reassessment of suicide risk Summary of Hospital Course: During the course of her stay, patient (pt) started progressively improving and no longer remained irritable, depressed, and suicidal. Her mood and anxiety were improved and she started attending groups and meetings and started socializing. Patient denied any feelings of hopelessness, helplessness, and worthlessness, denied any problem with the sleep or appetite, denied suicidal ideation or homicidal ideation. Pt denied any auditory or visual hallucinations. She denied any withdrawal symptoms. Pt was treated with medications along with supportive therapy, milieu therapy and group therapy. Some changes were made in her current medications and patient was discharged on following medications. She tolerated these medications very well and denied any side effects. - Final Diagnosis (DSM 5) Condition upon Discharge: STABLE DSM 5: Bipolar disorder mixed severe with psychotic features Alcohol use disorder severe in remission Opioid use disorder severe in early remission Disposition: HOME/ ROUTINE Follow-up Treatment Plan: Followup: She was discharged to [facility]. Education: Pt was educated and counseled about the risks and benefits of taking and not taking medications. Pt was educated and counseled about the risks of drinking and abusing drugs. Pt was educated and counseled to go to the ER or call 911 if pt develop suicidal ideation or homicidal ideation, worsening of symptoms or severe side effects of the meds. Prescriptions/Medication Reconciliation: ARIPiprazole [Abilify] 10 mg PO HS #30 tab Gabapentin [Neurontin] 300 mg PO BID #60 cap Mirtazapine [Remeron] 15 mg PO HS #30 tab Moxifloxacin [Avelox] 400 mg PO DAILY #10 tab Oseltamivir Cap [Tamiflu Cap] 75 mg PO BID #10 capsule traZODone [Desyrel] 100 mg PO HS #30 tab - Smoking Cessation Smoking Cessation Medication prescribed: No - Antipsychotic Medications Pt discharged on 2 or more routine antipsychotic medications: No
[2018-08-22 15:51] VITALS: BP 117/73; PULSE 108
== END 2018-08-22 17:30 | disposition home or self-care (01) | DRG 430 ==
LOC: C.ER 16:17 → C.5E 18:44 → C.5S 08-19 16:58 → C.5E 08-20 17:50
PROVIDERS: ADMIT Hospitalist; ATTEND Hospitalist
PROC: GZHZZZZ Group Psychotherapy (ICD-10-PCS; principal; 2018-08-15)
PROC: GZ56ZZZ Individual Psychotherapy, Supportive (ICD-10-PCS; 2018-08-15)
DX: F31.64 Bipolar disorder, current episode mixed, severe, with psychotic features (principal); E86.0 Dehydration; F41.9 Anxiety disorder, unspecified; G47.00 Insomnia, unspecified; I10 Essential (primary) hypertension; R45.851 Suicidal ideations; F17.210 Nicotine dependence, cigarettes, uncomplicated; F11.21 Opioid dependence, in remission; F10.21 Alcohol dependence, in remission